=== PATIENT | female | born 1955 | race Two or more races ===

== ENCOUNTER 2018-06-28 07:24 | Outpatient (CLI) | payer OTHER | END 2018-06-28 07:29 | disposition home or self-care (01) | LOC: SONOGRAMA 07:24 → MAMO-SONO 08:45 | DX: M25.511 Pain in right shoulder (principal) ==

== ENCOUNTER 2018-12-31 07:30 | Outpatient (CLI) | payer OTHER | END 2018-12-31 07:43 | disposition home or self-care (01) | LOC: TOM 07:30 | DX: R10.31 Right lower quadrant pain (principal); R10.32 Left lower quadrant pain; R10.11 Right upper quadrant pain; J01.00 Acute maxillary sinusitis, unspecified; M47.897 Other spondylosis, lumbosacral region ==

== ENCOUNTER 2019-01-04 07:15 | Outpatient (CLI) | payer OTHER | END 2019-01-04 07:22 | disposition home or self-care (01) | LOC: RAD 07:15 | DX: M19.90 Unspecified osteoarthritis, unspecified site (principal); J01.90 Acute sinusitis, unspecified; J32.8 Other chronic sinusitis ==

== ENCOUNTER 2019-01-04 09:59 | Outpatient (CLI) | payer OTHER | END 2019-01-04 10:27 | disposition home or self-care (01) | LOC: NUCLEAR 09:59 | DX: M81.0 Age-related osteoporosis without current pathological fracture (principal) ==

== ENCOUNTER 2023-03-19 13:26 | Outpatient (CLI) | payer OTHER | END 2023-03-19 13:28 | disposition home or self-care (01) | LOC: SONOGRAMA 13:26 | PROVIDERS: ATTEND Pathology Anatomic Pathology & Clinical Pathology | DX: D34 Benign neoplasm of thyroid gland (principal); E04.9 Nontoxic goiter, unspecified ==

== ENCOUNTER 2024-03-13 14:18 | Emergency (ER) | payer OTHER ==
[~2024-03-13] VITALS: Ht 152.4 cm; Wt 66.2 kg
[2024-03-13] MEDS ORDERED: ROSUVASTATIN CA20 MG PO (14:57)
[2024-03-13] MEDS ORDERED: ZETIA10 MG PO (14:57)
[2024-03-13] MEDS ORDERED: ASPIRIN 81 MG TABLET.EC PO ONE (15:30)
[2024-03-13 15:34] LABS: HEMATOCRIT 40.1 % (36.0-45.00); MEAN CELL VOLUME 91.9 fL (80.00-100.00); MEAN CORPUSCULAR HEMOGLOBIN 32.2 pg (27.00-32.0); PLATELET COUNT 261 K/uL (150-450); RED BLOOD COUNT 4.36 M/uL (4.00-6.00); RED CELL DISTRIBUTION WIDTH 13.1 % (11.5-14.5)
[2024-03-13 15:57] LABS: ALBUMIN 3.7 gm/dL (3.4-5.0); BILIRUBIN TOTAL 0.38 mg/dL (0.3-1.2); CREATININE SERUM 0.73 mg/dL (0.55-1.02); GFR 79.05; GLOBULINA 3.4 G/DL (2.4-3.5); POTASSIUM 3.99 mEq/L (3.5-5.1); TOTAL PROTEIN 7.1 gm/dL (6.4-8.2)
[2024-03-13 16:03] LABS: PARTIAL THROMBOPLASTIN TIME 24.8 SECONDS (22.0-34.0); PROTHROMBIN TIME 10.9 SECONDS (9.0-11.5)
[2024-03-13 17:28] LABS: ABG PH 7.422 (7.35-7.45); ABG pCO2 37.6 mmHg (35-45)
[2024-03-13 17:29] LABS: BASE EXCESS -0.2 mmol/l; Tco2 25.1 mmol/l; allen test SATISFACTORY; o2 21 %; puncture site RADIAL RIGHT
== END 2024-03-13 20:30 | disposition home or self-care (01) ==
LOC: ER 14:20
PROVIDERS: General Practice
DX: R07.9 Chest pain, unspecified (principal); I10 Essential (primary) hypertension

== ENCOUNTER 2024-04-14 12:28 | Emergency (ER) | payer OTHER ==
[~2024-04-14] VITALS: Ht 162.6 cm; Wt 82.6 kg
[~2024-04-14 12:28] MED LIST: ROSUVASTATIN CA20 MG PO; ZETIA10 MG PO
[2024-04-14] MEDS ORDERED: ORPHENADRINE CITRATE 30 MG/ML AMPUL IM ONE (13:30)
[2024-04-14] MEDS ORDERED: NORFLEX100MG PO (15:39)
== END 2024-04-14 15:52 | disposition home or self-care (01) ==
LOC: ER 12:30
DX: M79.10 Myalgia, unspecified site (principal)
CPT/HCPCS: 72100; 72170; 73110; 73590; 96372; 99283; J2360

== ENCOUNTER 2024-04-21 13:45 | Outpatient (CLI) | payer OTHER ==
[~2024-04-21 13:45] MED LIST changes: +NORFLEX100MG PO
== END 2024-04-21 13:48 | disposition home or self-care (01) ==
LOC: SONOGRAMA 13:45
PROVIDERS: ATTEND Pathology Anatomic Pathology & Clinical Pathology
DX: E04.2 Nontoxic multinodular goiter (principal); D34 Benign neoplasm of thyroid gland; E07.89 Other specified disorders of thyroid

== ENCOUNTER 2025-01-17 16:11 | Emergency (ER) | payer OTHER ==
[~2025-01-17] VITALS: Ht 154.9 cm; Wt 76.2 kg
[2025-01-17 18:29] LABS: BASO % 0.8 % (0.1-1.2); EOS # 0.21 (0.04-0.54); EOS % 3.4 % (0.7-7.0); LYMPH # 2.65 (1.18-3.74); LYMPH % 42.7 % (19.3-53.1); MEAN PLATELET VOLUME 10.20 fl (9.4-12.4); MONO # 0.58 (0.24-0.82); MONO % 9.4 % (4.7-12.5); NEUT # 2.68 (1.56-6.13); NEUT % 43.2 % (34.0-71.1); RED CELL DISTRIBUTION WIDTH 12.5 % (11.6-14.4)
[2025-01-17 18:55] LABS: URINE APPEARANCE Clear; URINE BILIRRUBIN Negative (NEGATIVE); URINE BLOOD Negative; URINE COLOR Yellow; URINE GLUCOSE Negative (NEGATIVE); URINE KETONE Negative (NEGATIVE); URINE LEUKOCYTE Trace; URINE NITRATE Negative; URINE PROTEIN Negative (NEGATIVE); URINE UROBILINOGEN 0.2 E.U./dl
[2025-01-17 19:00] LABS: URINE BACTERIA 5.9 uL (0.0-1933); URINE EPITHELIAL CELLS 7.3 uL (0.0-38.8); URINE RBC 4.5 uL (0.0-20.8); URINE WBC 14.9 uL (0.0-23.2)
[2025-01-17 19:05] LABS: URINE CAST 0.14 uL (0.0-1.40)
[2025-01-17 19:11] LABS: ALT/SGPT 17.0 U/L (12-78); AST/SGOT 14.0 U/L (15-37); BILIRUBIN TOTAL 0.57 mg/dL (0.3-1.2); BILIRUBIN,CONJUGATED 0.13 mg/dL (0.0-0.2); BUN CREA RATIO 12.0 (7.0-25.0); CREATININE SERUM 0.67 mg/dL (0.55-1.02); GFR 87.01; GLOBULINA 3.9 G/DL (2.4-3.5); GLUCOSE FASTING 90.0 mg/dL (65-100); OSMOLALITY SERUM 283.0 MOSM/KG (275-295)
[2025-01-18 00:35] LABS: ob NEGATIVE (NEGATIVE)
== END 2025-01-18 01:02 | disposition home or self-care (01) ==
LOC: ER 16:11
PROVIDERS: Emergency Medicine
DX: K52.89 Other specified noninfective gastroenteritis and colitis (principal); R10.9 Unspecified abdominal pain; I10 Essential (primary) hypertension